=== PATIENT | male | born 1975 | race African-American/Black ===

== ENCOUNTER 2022-04-06 13:59 | Emergency (ER) | payer SELFPAY ==
[2022-04-06] MEDS ORDERED: SODIUM CHLORIDE 0.9% 1000 ML 1,000 ML IV ONE (16:05)
[2022-04-06 16:56] VITALS: BP 102/72
[2022-04-06 17:10] LABS: Hematocrit 43.7 % (35.5-45.6); Hemoglobin 15.1 gm/dl (11.8-15.2); Mean Corpuscular HGB Conc 35 % (32-34); Mean Corpuscular Volume 97 fl (84-94); Platelet Count 170 K/mm3 (140-440); Red Blood Count 4.52 M/mm3 (3.65-5.03); Red Cell Distribution Width 14.1 % (13.2-15.2)
[2022-04-06 17:24] LABS: Alanine Aminotransferase 21 units/L (7-56); Albumin 4.7 g/dL (3.9-5); BUN/Creatinine Ratio 7; Blood Urea Nitrogen 6 mg/dL (9-20); Calcium 9.2 mg/dL (8.4-10.2); Hemolysis Index 44
[2022-04-06 17:38] LABS: Amphetamine Screen,Urine Negative; Benzodiazepines Screen,Urine Negative; Cannabinoid Screen,Urine Negative; Cocaine Screen,Urine Negative; Methadone Screen,Urine Negative; Opiate Screen,Urine Negative
[2022-04-06 17:45] LABS: WBC,Urine < 1.0 /HPF (0.0-6.0)
[2022-04-06 17:59] LABS: Color,Urine Yellow (Yellow)
[2022-04-06 18:00] LABS: Bilirubin,Urine Negative (Negative); Blood,Urine Negative (Negative); Urobilinogen,Urine < 2.0 mg/dL (<2.0)
--- NOTE | 2022-04-06 19:44 | Emergency Department Report ---
ED Psych HPI - General Chief Complaint: Psych Stated Complaint: SUICIDAL Time Seen by Provider: 04/06/22 15:28 Source: EMS Mode of arrival: Stretcher - History of Present Illness MD Complaint: suicidal ideation, feels depressed Associated Psychiatric Symptoms: depression, suicidal ideation History of same: No Improves With: none Worsens With: none - Related Data Allergies Allergy/AdvReac Type Severity Reaction Status Date / Time No Known Allergies Allergy Unverified 04/06/22 16:05 ED Review of Systems ROS: Stated complaint: SUICIDAL Other details as noted in HPI Constitutional: denies: chills, fever Eyes: denies: eye pain, eye discharge, vision change ENT: denies: ear pain, throat pain Respiratory: denies: cough, shortness of breath, wheezing Cardiovascular: denies: chest pain, palpitations Endocrine: no symptoms reported Gastrointestinal: denies: abdominal pain, nausea, diarrhea Genitourinary: denies: urgency, dysuria Musculoskeletal: denies: back pain, joint swelling, arthralgia Skin: denies: rash, lesions Neurological: denies: headache, weakness, paresthesias Psychiatric: denies: anxiety, depression Hematological/Lymphatic: denies: easy bleeding, easy bruising ED Past Medical Hx - Past Medical History Previous Medical History?: No - Social History Smoking Status: Current Every Day Smoker Substance Use Type: Alcohol ED Physical Exam - General Limitations: No Limitations General appearance: alert, appears intoxicated - Head Head exam: Present: atraumatic, normocephalic - Eye Eye exam: Present: normal appearance - ENT ENT exam: Present: mucous membranes moist - Neck Neck exam: Present: normal inspection - Respiratory Respiratory exam: Present: normal lung sounds bilaterally. Absent: respiratory distress - Cardiovascular Cardiovascular Exam: Present: regular rate, normal rhythm. Absent: systolic murmur, diastolic murmur, rubs, gallop - GI/Abdominal GI/Abdominal exam: Present: soft, normal bowel sounds - Rectal Rectal exam: Present: deferred - Extremities Exam Extremities exam: Present: normal inspection - Back Exam Back exam: Present: normal inspection - Neurological Exam Neurological exam: Present: alert, oriented X3 - Psychiatric Psychiatric exam: Present: normal affect, depressed - Skin Skin exam: Present: warm, dry, intact, normal color. Absent: rash ED Course Vital Signs 06/02/22 06/02/22 06/02/22 14:14 16:50 16:56 Pulse Rate 98 H 70 Respiratory 15 18 Rate Blood Pressure 130/80 102/72 [Right] O2 Sat by Pulse 100 100 100 Oximetry ED Medical Decision Making - Lab Data Result diagrams: 04/06/22 16:06 04/06/22 16:06 Critical care attestation.: If time is entered above; I have spent that time in minutes in the direct care of this critically ill patient, excluding procedure time. ED Disposition Clinical Impression: Suicidal ideation, Depression Disposition: 30 STILL A PATIENT Is pt being admited?: No Does the pt Need Aspirin: No Condition: Stable Referrals: PRIMARY CARE, [Primary Care Provider] - 3-5 Days
[2022-04-06 20:08] LABS: Basophils % (Manual) 0 % (0.0-1.8); Platelet Estimate Consistent w Auto; RBC Morphology Normal; Total Cells Counted 100
== END 2022-04-06 17:36 | disposition left against medical advice (07) ==
LOC: ED 13:59
DX: R45.851 Suicidal ideations (principal); F32.A Depression, unspecified; F17.200 Nicotine dependence, unspecified, uncomplicated
CPT/HCPCS: 36415; 80053; 80307; 81001; 85007; 85025; 99283; J7030; 80320; G0480

== ENCOUNTER 2022-04-08 12:36 | Emergency (ER) | payer SELFPAY ==
[2022-04-08] MEDS ORDERED: DEXTROSE 10% *Hypoglycemia IV PRN (12:51)
[2022-04-08] MEDS ORDERED: HALOPERIDOL LACTATE 5 MG/1 ML INJ IM PRN (12:51)
[2022-04-08] MEDS ORDERED: LORazepam 2 MG/ML VIAL IM PRN (12:51)
--- NOTE | 2022-04-08 12:54 | Emergency Department Report ---
<MAYNOR COLON - Last Filed: 04/08/22 14:20> ED General Adult HPI - General Chief complaint: Alcohol Stated complaint: ETOH Time Seen by Provider: 04/08/22 12:43 Source: patient, EMS (Verbal report received from emergency medical services. EMS documentation not available at time of chart dictation ), RN notes reviewed Mode of arrival: Stretcher Limitations: Other (Alcohol intoxication) - History of Present Illness Initial comments: The patient was evaluated in the emergency department for symptoms described in the history of present illness. He/she was evaluated in the context of the global COVID-19 pandemic, which necessitated consideration that the patient might be at risk for infection with the virus that causes COVID-19. Institutional protocols and algorithms that pertain to the evaluation of patients at risk for COVID-19 are in a state of rapid change based on information released by regulatory bodies including the CDC and federal and state organizations. These policies and algorithms were followed during the patient's care in the emergency department. Please note that these policies, procedures and recommendations changed on a rapid basis. This patient is a 47-year-old gentleman who is not known to myself previously, who presents to the ER with EMS with an EMS articulated complaint of acute un complicated nontraumatic alcohol intoxication. EMS reports the patient is a resident at a local hot, and was reportedly not getting out of his room, secondary to presumed alcohol intoxication. Hotel then called 911, police, who for unclear and uncertain reasons, requested emergency medical services. EMS articulates that the patient is ambulatory in the field, there is no history of trauma that they are aware of, normal Accu-Chek, and that the patient endorsed no complaints. Here in the emergency room, the patient is floridly intoxicated, not able to describe the circumstances of his intoxication. He makes no complaint of physical pain, homicidality or suicidality. EMS reports that they found the patient sitting down in a chair. It is not known if the patient fell. The patient is not accompanied by friends or family at this time for collateral information or additional information. This patient is intoxicated and therefore, not able to describe the qualitative nature of symptoms, exacerbating factors relieving factors or aggravating factors -: unknown - Related Data Previous Rx's Medication Instructions Recorded Last Taken Type Multivitamin with Folic Acid [Cvs 400 mcg PO QDAY #30 tablet 04/08/22 Unknown Rx One Daily Essential Tablet] chlordiazePOXIDE [Librium] 25 mg PO Q6H PRN #25 capsule 04/08/22 Unknown Rx Allergies Allergy/AdvReac Type Severity Reaction Status Date / Time No Known Allergies Allergy Verified 04/08/22 12:38 ED Review of Systems Comment: Unobtainable due to pts medical conditions ED Past Medical Hx - Social History Smoking Status: Current Every Day Smoker Substance Use Type: Alcohol - Medications Home Medications: Home Medications Medication Instructions Recorded Confirmed Last Taken Type Multivitamin with Folic Acid [Cvs 400 mcg PO QDAY #30 tablet 04/08/22 Unknown Rx One Daily Essential Tablet] chlordiazePOXIDE [Librium] 25 mg PO Q6H PRN #25 capsule 04/08/22 Unknown Rx ED Physical Exam - General Limitations: Altered Mental Status (Alcohol intoxication) General appearance: in no apparent distress, appears intoxicated - Head Head exam: Present: atraumatic, normocephalic - Eye Eye exam: Present: normal appearance, EOMI. Absent: nystagmus - ENT ENT exam: Present: normal exam, normal orophraynx, mucous membranes moist, normal external ear exam - Neck Neck exam: Present: normal inspection, full ROM. Absent: tenderness, meningismus - Respiratory Respiratory exam: Present: normal lung sounds bilaterally. Absent: respiratory distress, wheezes, rales, rhonchi, stridor, decreased breath sounds - Cardiovascular Cardiovascular Exam: Present: regular rate, normal rhythm, normal heart sounds. Absent: bradycardia, tachycardia, irregular rhythm, systolic murmur, diastolic murmur, rubs, gallop - GI/Abdominal GI/Abdominal exam: Present: soft. Absent: distended, tenderness, guarding, rebound, rigid, pulsatile mass - Rectal Rectal exam: Present: deferred - Extremities Exam Extremities exam: Present: normal inspection, full ROM, other (2+ pulses noted in the bilateral upper and lower extremities. There is no palpable cord. negative Homans sign. Muscular compartments are soft. The pelvis is stable.). Absent: pedal edema, calf tenderness - Back Exam Back exam: Present: normal inspection. Absent: tenderness, CVA tenderness (R), CVA tenderness (L), paraspinal tenderness, vertebral tenderness - Neurological Exam Neurological exam: Present: altered, other (Moving 4 extremities. There is no facial droop. Patient is intoxicated.) - Skin Skin exam: Present: warm, dry, intact, normal color. Absent: rash ED Course - Reevaluation(s) Reevaluation #1: 04/08/22 13:07 Differential diagnosis, including but not limited to: Alcohol intoxication, electrolyte derangement, medical screening examination Assessment and plan: 47-year-old gentleman with probable simple alcohol intoxication. He is afebrile with reassuring vital signs and protecting his airway and moving 4 extremities. There is no history or physical examination evidence of blunt trauma. However, given that patient is found in a hotel, we do not know if he fell. Therefore, we will obtain CT scan of the brain and cervical spine. Patient will be placed on hold pending clinical sobriety. We will obtain appropriate laboratory studies. Holding orders initiated, as needed Accu-Cheks ordered, as needed dextrose ordered. Reassess after laboratory studies and diagnostics have resulted. At this point in time does not meet criteria for 1013. 04/08/22 14:09 Care will be transferred to the oncoming ER physician, Dr. Reynolds, To follow-up on CT scan brain and cervical spine, basic metabolic panel, and reassess and discharge when clinically sober Patient breathing comfortably at this time, and in no acute distress, protecting airway. ED Medical Decision Making - Lab Data Result diagrams: 04/08/22 12:59 04/08/22 12:59 Vital Signs 04/08/22 12:36 Temperature 98 F Pulse Rate 87 Blood Pressure 125/87 [Left] O2 Sat by Pulse 98 Oximetry Lab Results 04/08/22 04/08/22 04/08/22 Range/Units 12:59 12:59 12:59 WBC 5.8 (4.5-11.0) K/mm3 RBC 5.17 H (3.65-5.03) M/mm3 Hgb 16.6 H (11.8-15.2) gm/dl Hct 50.0 H D (35.5-45.6) % MCV 97 H (84-94) fl MCH 32 (28-32) pg MCHC 33 (32-34) % RDW 13.4 (13.2-15.2) % Plt Count 180 (140-440) K/mm3 Sodium 142 (137-145) mmol/L Potassium 3.7 (3.6-5.0) mmol/L Chloride 106.5 (98-107) mmol/L Carbon Dioxide 18 L (22-30) mmol/L Anion Gap 21 mmol/L BUN 8 L (9-20) mg/dL Creatinine 1.0 (0.8-1.3) mg/dL Estimated GFR > 60 ml/min BUN/Creatinine Ratio 8 % Glucose 221 H (75-100) mg/dL Calcium 8.5 (8.4-10.2) mg/dL Salicylates < 0.3 L (2.8-20.0) mg/dL Acetaminophen (10.0-30.0) ug/mL Plasma/Serum Alcohol (0-0.07) % 04/08/22 04/08/22 Range/Units 12:59 12:59 WBC (4.5-11.0) K/mm3 RBC (3.65-5.03) M/mm3 Hgb (11.8-15.2) gm/dl Hct (35.5-45.6) % MCV (84-94) fl MCH (28-32) pg MCHC (32-34) % RDW (13.2-15.2) % Plt Count (140-440) K/mm3 Sodium (137-145) mmol/L Potassium (3.6-5.0) mmol/L Chloride (98-107) mmol/L Carbon Dioxide (22-30) mmol/L Anion Gap mmol/L BUN (9-20) mg/dL Creatinine (0.8-1.3) mg/dL Estimated GFR ml/min BUN/Creatinine Ratio % Glucose (75-100) mg/dL Calcium (8.4-10.2) mg/dL Salicylates (2.8-20.0) mg/dL Acetaminophen 5.0 L (10.0-30.0) ug/mL Plasma/Serum Alcohol 0.47 H (0-0.07) % - Radiology Data Radiology results: pending ED Disposition Clinical Impression: Encounter for medical screening examination Alcohol intoxication Qualifiers: Complication of substance-induced condition: with unspecified complication Qualified Code(s): F10.929 - Alcohol use, unspecified with intoxication, unspecified Disposition: 07 LEFT AGAINST MEDICAL ADVICE Condition: Good Additional Instructions: Please minimize/avoid consumption of alcohol. Do not drive or operate motor vehicles until cleared to do so by your primary care doctor. Participate in physical activities as tolerated. Take the multivitamin as directed. Take the Librium as directed. Follow-up with a primary care doctor or instructional specialist within the next week. Please return to the emergency room right away with new pain, worsened pain, migration of pain, projectile vomiting, change in mental status, confusion, sydnee bility tolerate liquid feeds, new, worsened or different symptoms not present on the initial emergency room evaluation Prescriptions: Multivitamin with Folic Acid [Cvs One Daily Essential Tablet] 400 mcg PO QDAY #30 tablet chlordiazePOXIDE [Librium] 25 mg PO Q6H PRN #25 capsule PRN Reason: Alcohol Withdrawal Referrals: [facility] [Outside] - 3-5 Days [facility] [Outside] - 3-5 Days <JOHNNY REYNOLDS - Last Filed: 04/08/22 22:04> ED Review of Systems ROS: Stated complaint: ETOH Other details as noted in HPI ED Course Vital Signs 04/08/22 04/08/22 04/08/22 12:36 13:06 20:04 Temperature 98 F Pulse Rate 87 103 H Respiratory 18 Rate Blood Pressure 125/87 120/75 [Left] O2 Sat by Pulse 98 100 99 Oximetry - Reevaluation(s) Reevaluation #2: 04/08/22 16:36 CT head and Cervical noted with no acute findings Reevaluation #3: 04/08/22 17:51 I ordered Banana bag 1L and ivf ns 1L bolus to help with likely dehydration from the alcohol intoxication-- Reevaluation #4: 04/08/22 22:03 Pt refused the ivf ns and banana bag that was ordered to hydrate him. I went outside to smoke left his shoes in the examination room only to return about 10 minutes later. About 1 hour after he returned to the room patient threatened the staff and decided to signed out AMA. ED Medical Decision Making - Lab Data Result diagrams: 04/08/22 12:59 04/08/22 12:59 - Radiology Data Radiology results: report reviewed, image reviewed CT head with no acute intracranial abnormality CT cervical noted with no acute bony abnormality Critical care attestation.: If time is entered above; I have spent that time in minutes in the direct care of this critically ill patient, excluding procedure time. ED Disposition Is pt being admited?: No Does the pt Need Aspirin: No Time of Disposition: 22:04
[2022-04-08 13:25] LABS: Hemoglobin 16.6 gm/dl (11.8-15.2); Mean Corpuscular HGB Conc 33 % (32-34); Mean Corpuscular Volume 97 fl (84-94); Platelet Count 180 K/mm3 (140-440); Red Blood Count 5.17 M/mm3 (3.65-5.03); Red Cell Distribution Width 13.4 % (13.2-15.2)
[2022-04-08 14:17] LABS: BUN/Creatinine Ratio 8; Blood Urea Nitrogen 8 mg/dL (9-20); Calcium 8.5 mg/dL (8.4-10.2); Hemolysis Index 49
--- NOTE | 2022-04-08 16:19 | Cat Scan Report ---
CT head/brain wo con INDICATION: etoh intoxication shaking, unknown if trauma. TECHNIQUE: Routine CT head. All CT scans at this location are performed using CT dose reduction for A TAI by means of automated exposure control. COMPARISON: None. FINDINGS: Intracranial: Barnett-white matter differentiation is maintained. No intracranial hemorrhage. No extra a xial collection. No hydrocephalus. No herniation. Sinuses: Paranasal sinuses and mastoid air cells are essentially clear. Orbits: Globes are intact. Calvarium: No acute fracture. IMPRESSION: 1. No acute intracranial abnormality. Signer Name: Adiel Abreu MD Signed: 04/08/2022 4:14 PM Workstation Name: [id number]
--- NOTE | 2022-04-08 16:19 | Cat Scan Report ---
CT cervical spine wo con INDICATION: etoh intoxication shaking, unknown if trauma. TECHNIQUE: Axial CT images of the cervical spine were obtained. Sagittal and coronal reformatted images were pro duced. All CT scans at this location are performed using CT dose reduction for ALARA by means of auto mated exposure control. COMPARISON: None available. FINDINGS: ALIGNMENT: Normal alignment. VERTEBRAE: No fracture. Vertebral body heights are preserved. C1 and C2 are congruent. SPONDYLOSIS: No significant spondylosis. SOFT TISSUES: No significant soft tissue abnormality. ADDITIONAL FINDINGS: No significant additional findings. IMPRESSION: 1. No fracture of the cervical spine. Signer Name: Adiel Abreu MD Signed: 04/08/2022 4:15 PM Workstation Name: [id number]
[2022-04-08] MEDS ORDERED: SODIUM CHLORIDE 0.9% 1000 ML 1,000 ML IV ONE (17:49)
[2022-04-08] MEDS ORDERED: THIAMINE 100 MG, FOLIC ACID 1 MG, MULTIPLE VITAMIN INJ, ADULT 10 ML in SODIUM CHLORIDE ... IV ONE (17:50)
[2022-04-08 20:04] VITALS: BP 120/75
== END 2022-04-08 20:40 | disposition left against medical advice (07) ==
LOC: ED 12:36
DX: F10.129 Alcohol abuse with intoxication, unspecified (principal); Z13.30 Encounter for screening examination for mental health and behavioral disorders, unspecified; F17.290 Nicotine dependence, other tobacco product, uncomplicated; R51.9 Headache, unspecified
CPT/HCPCS: 36415; 70450; 72125; 80048; 82962; 85027; 96361; 96365; 96366; 96372; 99284; J2060; J3411; J3490; J7030; 80320; G0480

== ENCOUNTER 2022-04-09 00:01 | Emergency (ER) | payer SELFPAY ==
[2022-04-09 00:51] LABS: Basophils % (Auto) 0.3 % (0.0-1.8); Eosinophils # (Auto) 0.1 K/mm3 (0.0-0.4); Eosinophils % (Auto) 0.6 % (0.0-4.3); Hematocrit 48.9 % (35.5-45.6); Hemoglobin 16.4 gm/dl (11.8-15.2); Lymphocytes # (Auto) 2.2 K/mm3 (1.2-5.4); Lymphocytes % (Auto) 23.7 % (13.4-35.0); Mean Corpuscular HGB Conc 34 % (32-34); Mean Corpuscular Volume 97 fl (84-94); Monocytes # (Auto) 0.3 K/mm3 (0.0-0.8); Monocytes % (Auto) 3.4 % (0.0-7.3); Platelet Count 198 K/mm3 (140-440); Red Blood Count 5.05 M/mm3 (3.65-5.03); Red Cell Distribution Width 13.7 % (13.2-15.2)
[2022-04-09 01:33] LABS: BUN/Creatinine Ratio 11; Blood Urea Nitrogen 10 mg/dL (9-20); Calcium 9.4 mg/dL (8.4-10.2); Hemolysis Index 16
[2022-04-09] MEDS ORDERED: MULTIVITAMINS ,THERAPEUTIC TAB PO ONE (02:04)
[2022-04-09] MEDS ORDERED: THIAMINE 100 MG TAB PO ONE (02:04)
[2022-04-09] MEDS ORDERED: FOLIC ACID 1 MG TAB PO ONE (02:05)
--- NOTE | 2022-04-09 02:09 | Emergency Department Report ---
HPI - HPI HPI: Room 12 The patient is a 46-year-old male presenting with a chief complaint of suicidal ideation. Patient states he had a lot things going on And was reportedly kicked out of a detox program. Patient stated in triage that he wanted to kill himself. Patient admitted that his plan was to take pills. Patient denies any attempts at harming himself <MILLY MARINA - Last Filed: 04/09/22 02:06> <JJ BLAIR - Last Filed: 04/09/22 11:23> - General Chief Complaint: Psych Time Seen by Provider: 04/09/22 01:52 ED Past Medical Hx - Family History Family history: no significant - Social History Smoking Status: Current Every Day Smoker Substance Use Type: Alcohol <MILLY MARINA - Last Filed: 04/09/22 02:06> <JJ BLAIR - Last Filed: 04/09/22 11:23> - Medications Home Medications: Home Medications Medication Instructions Recorded Confirmed Last Taken Type Multivitamin with Folic Acid [Cvs 400 mcg PO QDAY #30 tablet 04/08/22 Unknown Rx One Daily Essential Tablet] chlordiazePOXIDE [Librium] 25 mg PO Q6H PRN #25 capsule 04/08/22 Unknown Rx ED Review of Systems ROS: Stated complaint: PSYCH EVAL Other details as noted in HPI Constitutional: no symptoms reported Eyes: denies: eye pain ENT: denies: throat pain Respiratory: no symptoms reported Cardiovascular: denies: chest pain Endocrine: no symptoms reported Gastrointestinal: denies: abdominal pain Genitourinary: denies: dysuria Musculoskeletal: denies: back pain Psychiatric: suicidal thoughts <MILLY MARINA - Last Filed: 04/09/22 02:06> ROS: Stated complaint: PSYCH EVAL Other details as noted in HPI <JJ BLAIR - Last Filed: 04/09/22 11:23> Physical Exam - Physical Exam Vital Signs: Vital Signs 04/09/22 04/09/22 00:06 02:05 Temperature 97.6 F Pulse Rate 98 H Respiratory 18 Rate Blood Pressure 124/91 O2 Sat by Pulse 97 98 Oximetry Physical Exam: GENERAL: The patient is well-developed well-nourished male sleeping on chair not appearing to be in acute distress. Patient was initially difficult to arouse but after tactile stimuli the patient awakens and answers questions HEENT: Normocephalic. Atraumatic. Extraocular motions are intact. Patient has moist mucous membranes. NECK: Supple. Trachea midline CHEST/LUNGS: Clear to auscultation. There is no respiratory distress noted. HEART/CARDIOVASCULAR: Regular. There is no tachycardia. There is no gallop rub or murmur. ABDOMEN: Abdomen is soft, nontender. Patient has normal bowel sounds. There is no abdominal distention. SKIN: There is no rash. There is no edema. There is no diaphoresis. NEURO: Patient was initially difficult to arouse but after tactile stimuli the patient awakens and answers questions. The patient is cooperative. The patient has normal speech MUSCULOSKELETAL: There is no evidence of acute injury. <MILLY MARINA - Last Filed: 04/09/22 02:06> - Physical Exam Vital Signs: Vital Signs 04/09/22 04/09/22 04/09/22 00:06 02:05 02:10 Temperature 97.6 F 98.5 F Pulse Rate 98 H 95 H Respiratory 18 16 Rate Blood Pressure 124/91 Blood Pressure 101/64 [Left] O2 Sat by Pulse 97 98 98 Oximetry <JJ BLAIR - Last Filed: 04/09/22 11:23> ED Course Vital Signs 04/09/22 04/09/22 00:06 02:05 Temperature 97.6 F Pulse Rate 98 H Respiratory 18 Rate Blood Pressure 124/91 O2 Sat by Pulse 97 98 Oximetry <MILLY MARINA - Last Filed: 04/09/22 02:06> Vital Signs 04/09/22 04/09/22 04/09/22 00:06 02:05 02:10 Temperature 97.6 F 98.5 F Pulse Rate 98 H 95 H Respiratory 18 16 Rate Blood Pressure 124/91 Blood Pressure 101/64 [Left] O2 Sat by Pulse 97 98 98 Oximetry <JJ BLAIR - Last Filed: 04/09/22 11:23> ED Medical Decision Making - Lab Data Result diagrams: 04/09/22 00:20 04/09/22 00:20 - Differential Diagnosis Suicidal ideation, alcohol intoxication <MILLY MARINA Last Filed: 04/09/22 02:06> - Lab Data Result diagrams: 04/09/22 00:20 04/09/22 00:20 <JJ BLAIR - Last Filed: 04/09/22 11:23> Critical care attestation.: If time is entered above; I have spent that time in minutes in the direct care of this critically ill patient, excluding procedure time. <MILLY MARINA - Last Filed: 04/09/22 02:06> Critical care attestation.: If time is entered above; I have spent that time in minutes in the direct care of this critically ill patient, excluding procedure time. <JJ BLAIR - Last Filed: 04/09/22 11:23> ED Disposition <MILLY MARINA - Last Filed: 04/09/22 02:06> Is pt being admited?: No <JJ BLAIR - Last Filed: 04/09/22 11:23> Clinical Impression: Alcohol intoxication Qualifiers: Complication of substance-induced condition: with unspecified complication Qualified Code(s): F10.929 - Alcohol use, unspecified with intoxication, unspecified Disposition: 01 HOME / SELF CARE / HOMELESS Condition: Stable Instructions: Binge-Drinking Information, Adult Additional Instructions: Patient is medically cleared to be admitted to alcohol rehab. Referrals: FRANCY PARDO MD [Primary Care Provider] - 3-5 Days
[2022-04-09 07:30] LABS: Amphetamine Screen,Urine PRESUMPTIVE NEGATIVE; Benzodiazepines Screen,Urine PRESUMPTIVE NEGATIVE; Cannabinoid Screen,Urine PRESUMPTIVE NEGATIVE; Cocaine Screen,Urine PRESUMPTIVE NEGATIVE; Methadone Screen,Urine PRESUMPTIVE NEGATIVE; Opiate Screen,Urine PRESUMPTIVE NEGATIVE
[2022-04-09 08:05] LABS: Color,Urine Straw (Yellow)
[2022-04-09 08:06] LABS: Bilirubin,Urine Negative (Negative); Blood,Urine Negative (Negative); Protein,Urine <15 mg/dL mg/dL (Negative)
[2022-04-09 08:07] LABS: Bacteria,Urine 1+ /HPF (Negative); Urobilinogen,Urine < 2.0 mg/dL (<2.0)
--- NOTE | 2022-04-09 10:01 | Consultation ---
History of Present Illness - Reason for Consult Consult date: 04/09/22 Reason for consult: Suicidal - Chief Complaint Chief complaint: I have alcohol problems - History of Present Psychiatric Illness The patient is a 47yo male with history of Alcohol use disorder. He is currently at a Sober living accommodation where he hopes to go back to today. He states that his problem is related to his alcohol habits and is motivated to want to stop for good. He feels better this morning and is not suicidal. Patient describes a good and stable mood, denies being depressed or excessively nervous. Patient eats and sleeps well. Patient denies panic attacks, recurrent nightmares or flashbacks. Patient denies symptoms suggestive of OCD or PTSD. Patient denies hallucinations, paranoia, thought interference and no features suggestive of hypomania or nisreen. He completely denies suicidal or homicidal thoughts. RECOMMENDATIONS: DISPOSITION: Per primary team, no indication for acute inpatient psychiatric hospitalization at this time LEGAL STATUS: Voluntary FOLLOW-UP: Will sign off Please contact with any questions and/or concerns. Medications and Allergies Allergies Allergy/AdvReac Type Severity Reaction Status Date / Time No Known Allergies Allergy Verified 04/08/22 12:38 Home Medications Medication Instructions Recorded Confirmed Last Taken Type Multivitamin with Folic Acid [Cvs 400 mcg PO QDAY #30 tablet 04/08/22 Unknown Rx One Daily Essential Tablet] chlordiazePOXIDE [Librium] 25 mg PO Q6H PRN #25 capsule 04/08/22 Unknown Rx Mental Status Exam - Vital signs Last Vital Signs Temp 98.5 F 04/09/22 02:10 Pulse 95 H 04/09/22 02:10 Resp 16 04/09/22 02:10 BP 101/64 04/09/22 02:10 Pulse Ox 98 04/09/22 02:10 - Exam Orientation: time, place, person Affect: normal Mood: appropriate Thought Process: Intact Perceptions: none Speech: normal rate and pattern Concentration: focused Motor activity: normal Level of consciousness: alert Memory: Intact Sleep Symptoms: None Interaction: cooperative Mini mental status exam(if necessary): 24-30 Results Result Diagrams: 04/09/22 00:20 04/09/22 00:20 Abnormal lab results 04/09/22 04/09/22 04/09/22 Range/Units 00:20 00:20 00:20 RBC (3.65-5.03) M/mm3 Hgb (11.8-15.2) gm/dl Hct (35.5-45.6) % MCV (84-94) fl Seg Neutrophils % (40.0-70.0) % Glucose 296 H (75-100) mg/dL Salicylates < 0.3 L (2.8-20.0) mg/dL Acetaminophen 5.0 L (10.0-30.0) ug/mL Plasma/Serum Alcohol (0-0.07) % 04/09/22 04/09/22 Range/Units 00:20 00:20 RBC 5.05 H (3.65-5.03) M/mm3 Hgb 16.4 H (11.8-15.2) gm/dl Hct 48.9 H (35.5-45.6) % MCV 97 H (84-94) fl Seg Neutrophils % 72.0 H (40.0-70.0) % Glucose (75-100) mg/dL Salicylates (2.8-20.0) mg/dL Acetaminophen (10.0-30.0) ug/mL Plasma/Serum Alcohol 0.27 H (0-0.07) % All other labs normal. Assessment and Plan - Psychiatric problem (1) Alcohol intoxication Current Visit: No Status: Acute Qualifiers: Complication of substance-induced condition: with unspecified complication Qualified Code(s): F10.929 - Alcohol use, unspecified with intoxication, unspecified
--- NOTE | 2022-04-09 11:23 | Event Note ---
Date: 04/09/22 Patient is 47 years old male admitted to the emergency room with alcohol intoxication. Patient is sober today, patient is alert oriented x3 in no acute distress. 's vital signs stable. Patient is medically and psychiatrically stable for discharge to go to finish his alcohol rehab.
[2022-04-09 12:59] VITALS: BP 143/91
== END 2022-04-09 13:24 | disposition home or self-care (01) ==
LOC: ED 00:01
DX: F10.129 Alcohol abuse with intoxication, unspecified (principal); Z20.822 Contact with and (suspected) exposure to COVID-19
CPT/HCPCS: 36415; 80048; 80307; 81001; 85025; 99284; U0003; 80320; G0480

== ENCOUNTER 2022-05-27 17:01 | Emergency (ER) | payer SELFPAY ==
--- NOTE | 2022-05-27 17:27 | Emergency Department Report ---
HPI - General Chief Complaint: Overdose PUI?: No Time Seen by Provider: 05/27/22 17:20 - HPI HPI: Patient is a 47-year-old male with a history of chronic alcohol abuse, brought in by EMS for intentional drug overdose and suicidal ideation. EMS reports the patient took 1500 mg of trazodone as well as drink a liter of vodka. Time of consumption of these are unknown. Patient also subscribes to snorting cocaine. Patient states "I just wanted to kill myself. I am sick of living like this." He denies ingesting any other substances. He denies any falls or head trauma chest pain shortness of breath difficulty breathing or abdominal pain. Patient reports he is hungry. Pain 0 out of 10. ED Past Medical Hx - Past Medical History Previous Medical History?: No Hx Diabetes: Yes - Family History Family history: no significant - Social History Smoking Status: Never Smoker Substance Use Type: Alcohol, Cocaine, Prescribed - Medications Home Medications: Home Medications Medication Instructions Recorded Confirmed Last Taken Type Multivitamin with Folic Acid [[facility] 400 mcg PO QDAY #30 tablet 04/08/22 Unknown Rx One Daily Essential Tablet] chlordiazePOXIDE [Librium] 25 mg PO Q6H PRN #25 capsule 04/08/22 Unknown Rx ED Review of Systems ROS: Stated complaint: SI Other details as noted in HPI Comment: All other systems reviewed and negative Constitutional: no symptoms reported. denies: malaise Eyes: denies: eye pain, vision change ENT: denies: ear pain, throat pain, dental pain, hearing loss, epistaxis Respiratory: no symptoms reported, see HPI Cardiovascular: denies: chest pain, palpitations, dyspnea on exertion, orthopnea, edema, syncope, paroxysmal nocturnal dyspnea, other Endocrine: no symptoms reported Gastrointestinal: denies: abdominal pain, nausea, vomiting, diarrhea, constipation, hematemesis, melena Genitourinary: denies: as per HPI, urgency, dysuria, frequency, hematuria, discharge, testicular pain, testicular mass, other Musculoskeletal: denies: back pain, joint swelling, arthralgia, myalgia Skin: denies: rash, lesions, change in color, change in hair/nails, pruritus Neurological: denies: headache, weakness, numbness, paresthesias, confusion, abnormal gait Psychiatric: anxiety, depression, suicidal thoughts Hematological/Lymphatic: denies: easy bleeding, easy bruising, swollen glands Physical Exam - Physical Exam Vital Signs: Vital Signs 05/27/22 05/27/22 17:09 17:13 Temperature 98.7 F 98.9 F Pulse Rate 102 H 75 Respiratory 16 18 Rate Blood Pressure 109/71 Blood Pressure 116/72 [Left] O2 Sat by Pulse 96 99 Oximetry General: Gen: pt is well appearing, no acute distress, strong smell of ethanol on breath, asleep but easily arousable, no acute distress HEENT: Normocephalic atraumatic pupils equally round and reactive to light extraocular muscles intact sclera anicteric Neck: Full range of motion, no midline spinal tenderness palpation, no JVD, no carotid bruits, no nuchal rigidity CVS: S1-S2 regular rate and rhythm with no gallops rubs or murmurs, chest wall nontender Pulmonary: Clear to auscultation bilaterally, no wheezes rales or rhonchi Abdomen: Soft nondistended nontender no guarding or rebound tenderness, no palpable deformities or step-offs, normal active bowel sounds, no hepatosplenomegaly, no pulsatile masses Back: Full range of motion, no midline spinal tenderness palpation, no palpable deformities or step-offs : Deferred Extremities: No cyanosis no clubbing no edema, intact distal peripheral pulses, Integumentary: Skin normal, no petechia no purpura no abscess no lacerations no evidence of trauma no evidence of infection Neuro: Patient is asleep but easily arousable, and upon being aroused he is awake alert and oriented to person place time situation, mentating well, cranial nerves II through XII intact, no focal neurodeficits, sensation grossly tact Psych: Calm cooperative, mood affect normal ED Course Vital Signs 05/27/22 05/27/22 17:09 17:13 Temperature 98.7 F 98.9 F Pulse Rate 102 H 75 Respiratory 16 18 Rate Blood Pressure 109/71 Blood Pressure 116/72 [Left] O2 Sat by Pulse 96 99 Oximetry - Reevaluation(s) Reevaluation #2: 05/27/22 23:23 pt is well appearing; observed ambulating in his exam room; reports ED Medical Decision Making - Lab Data Result diagrams: 05/27/22 17:48 05/27/22 17:48 - EKG Data -: EKG Interpreted by Me EKG shows normal: sinus rhythm Rate: normal - EKG Data When compared to previous EKG there are: no significant change Interpretation: no acute changes 05/27/22 17:26 EKG interpreted by me: Ventricular rate 78 bpm. P waves are present in procedure QRS complex. Intervals normal. No ST segment depressions or elevations. No T wave flattening or inversions. No ectopy. No arrhythmia. Normal axis. Sinus rhythm. - Radiology Data Radiology results: report reviewed - Medical Decision Making 47-year-old male with a history of polysubstance abuse including alcohol and cocaine presents for evaluation of what he states was intentional suicidal attempt in the setting of overdosing on trazodone alcohol and consuming cocaine. Vital stable. Labs reviewed. Patient given potassium chloride. Alcohol level elevated. Poison control contacted by emergency department nurse. Patient observed for 6 hours in the main emergency department and his mentation significantly improved. He has no manifestation of arrhythmia dysrhythmia MEDICAL SPECIALIST depression or any other evidence of decompensation in the setting of his intentional overdose. He was observed multiple times ambulating here in the emergency department and was comfortable and well-appearing. Patient deemed medically cleared for evaluation by psychiatry. 1013 placed. Mental health consult placed as well. Patient will be transferred to psychiatric holding area for evaluation by mental health in the morning. Patient has been ordered for repeat potassium as well as serum alcohol level at 8 AM tomorrow morning Critical Care Time: No Critical care attestation.: If time is entered above; I have spent that time in minutes in the direct care of this critically ill patient, excluding procedure time. ED Disposition Clinical Impression: Suicide attempt, Drug overdose, Polysubstance abuse Disposition: 30 STILL A PATIENT Is pt being admited?: No Does the pt Need Aspirin: No Condition: Stable Referrals: FRANCY PARDO MD [Primary Care Provider] - 3-5 Days
[2022-05-27 17:41] LABS: Bilirubin,Urine NEG (Negative); Blood,Urine NEG (Negative); Color,Urine Yellow (Yellow)
[2022-05-27 17:44] LABS: Mucus,Urine 3+ /HPF
[2022-05-27 17:50] LABS: Amphetamine Screen,Urine Negative; Benzodiazepines Screen,Urine Negative; Cannabinoid Screen,Urine Negative; Methadone Screen,Urine Negative; Opiate Screen,Urine Negative
[2022-05-27 18:06] LABS: Basophils % (Auto) 0.3 % (0.0-1.8); Eosinophils % (Auto) 0.7 % (0.0-4.3); Hematocrit 46.6 % (35.5-45.6); Hemoglobin 16.1 gm/dl (11.8-15.2); Lymphocytes # (Auto) 1.8 K/mm3 (1.2-5.4); Lymphocytes % (Auto) 42.1 % (13.4-35.0); Mean Corpuscular HGB Conc 35 % (32-34); Mean Corpuscular Volume 97 fl (84-94); Monocytes # (Auto) 0.2 K/mm3 (0.0-0.8); Monocytes % (Auto) 4.2 % (0.0-7.3); Platelet Count 121 K/mm3 (140-440); Red Blood Count 4.79 M/mm3 (3.65-5.03); Red Cell Distribution Width 14.4 % (13.2-15.2)
--- NOTE | 2022-05-27 18:07 | XRay Report ---
CHEST 1 VIEW INDICATION / CLINICAL INFORMATION: weakness, alcohol intoxication. COMPARISON: None available. FINDINGS: SUPPORT DEVICES: None. HEART / MEDIASTINUM: No significant abnormality. LUNGS / PLEURA: No significant pulmonary or pleural abnormality. No pneumothorax. ADDITIONAL FINDINGS: No significant additional findings. IMPRESSION: 1. No acute findings. Signer Name: Max Tang MD Signed: 05/27/2022 6:03 PM Workstation Name: [id number]
[2022-05-27 18:23] LABS: Cocaine Screen,Urine Positive
[2022-05-27 18:27] LABS: Alanine Aminotransferase 30 units/L (7-56); Albumin 4.3 g/dL (3.9-5); Blood Urea Nitrogen 10 mg/dL (9-20); Calcium 8.8 mg/dL (8.4-10.2); Hemolysis Index 4
[2022-05-27 18:31] LABS: BUN/Creatinine Ratio 14
[2022-05-27] MEDS ORDERED: SODIUM CHLORIDE 0.9% 1000 ML 1,000 ML IV ONE (18:49)
[2022-05-27] MEDS ORDERED: POTASSIUM CHLORIDE ER 20 MEQ TAB PO ONE (18:49)
[2022-05-27] MEDS ORDERED: LORazepam 2 MG/ML VIAL IV ONE (22:20)
[2022-05-28 07:53] LABS: BUN/Creatinine Ratio 14
[2022-05-28 09:05] LABS: Blood Urea Nitrogen 20 mg/dL (9-20); Calcium 9.2 mg/dL (8.4-10.2); Hemolysis Index 6
--- NOTE | 2022-05-28 12:26 | Event Note ---
Date: 05/28/22 S: No events reported overnight O: Vital Signs - 8 hr 05/28/22 10:05 Temperature 98.9 F Pulse Rate 88 Respiratory 18 Rate Blood Pressure 112/76 [Left] O2 Sat by Pulse 99 Oximetry A: Suicidal ideation/overdose P: Awaiting psych eval
--- NOTE | 2022-05-28 16:28 | Consultation ---
History of Present Illness - Reason for Consult Consult date: 05/27/22 Reason for consult: MHE - History of Present Psychiatric Illness Psychiatric Consult Note Patient Name: EH JOHN Date of : 79 Patient Status: Emergency Emergency Provider: MILLY MARINA Date: 05/28/22 15:22 Initialization Date: 05/28/22 15:22 History of Present Illness - Reason for Consult Consult date: 05/27/22 Reason for consult: MHE - Chief Complaint Chief complaint: - Reason for Consult Consult date: 05/28/22 Reason for consult: Alcohol intoxication - Chief complaint: "I over drank" - History of Present Psychiatric Illness 47 year old male states [facility] he ws brought to the ER because " I drank too much" Patient has a hx of ETOH and has been in the hospital several times in the past 2 months. Patient sates that he has been drinking because of "bad things happening in my life" Patient has tried different alcohol detox program, but denies having seen a therapist. Patient might benefit more from outpatient therapy sessions at this time.Patient eats and sleeps well. Patient denies panic attacks, recurrent nightmares or flashbacks. Patient denies symptoms suggestive of OCD or PTSD. Patient denies hallucinations, paranoia, thought interference and no features suggestive of hypomania or nisreen. He completely denies suicidal or homicidal thoughts. Will recommend outpatient treatment and therapy sessions. PAST PSYCHIATRIC HISTORY: Diagnoses: Alcohol use, unspecified with intoxication, unspecified Suicide attempts or Self-harm behavior: Yes Prior psychiatric hospitalizations: Yes Substance Abuse history: Yes Previous psychiatric medications tried: Trazadone Outpatient treatment: Yes PAST MEDICAL HISTORY: Family Psychiatric History None reported or documented SOCIAL HISTORY Marital Status: Living Arrangements: Alone Employment Status: Employed Access to guns/weapons: Denies Education: College History of Abuse: Denies Legal History: REVIEW OF SYSTEMS Constitutional: Negative for weight loss ENT: Negative for stridor Respiratory: Negative for cough or hemoptysis All other systems reviewed and are negative MENTAL STATUS General Appearance and Behavior: age appropriate, good eye contact, cooperative with questioning and polite Cooperation: Cooperative Psychomotor Behavior: within normal limits Mood: OK Affect and affective range: Congruent with stated mood Thought Process: Fluent/Logical and Goal-directed Thought Content: Within reality Speech: Normal volume and Regular rate and rhythm Intellectual Functioning Average Suicidal Ideation: Denies SI Homicidal Ideation: Denies HI Impulse Control: intact Insight and Judgment: normal insight and judgment Memory: Normal Attention: Normal Orientation: alert and oriented RECOMMENDATIONS PSYCHOTHERAPY: Supportive psychotherapy needed MEDICAL: Per primary team DELIRIUM PRECAUTIONS: Please re-orient patient frequently, keep lights on during the day, and minimize benzodiazepines and opiates as these medications could worsen patient's confusion. HVAC/R INSTRUCTOR: /Defer to primary team DISPOSITION: Per primary team, no indication for acute inpatient psychiatric hospitalization at this time LEGAL STATUS: DC 1013 FOLLOW-UP: Will sign off The patient agreed on the treatment plan, understood the risk, benefit, alternative treatment, potential consequence of no treatment, and gave informed consent. I have reviewed this treatment plan, including potential risks and benefits of medications, with the patient and/or family members and relevant hospital providers. Please contact with any questions and/or concerns. Medications and Allergies Allergies Allergy/AdvReac Type Severity Reaction Status Date / Time No Known Allergies Allergy Verified 05/27/22 17:14 Home Medications Medication Instructions Recorded Confirmed Last Taken Type Multivitamin with Folic Acid [[facility] 400 mcg PO QDAY #30 tablet 04/08/22 Unknown Rx One Daily Essential Tablet] chlordiazePOXIDE [Librium] 25 mg PO Q6H PRN #25 capsule 04/08/22 Unknown Rx Mental Status Exam - Vital signs Last Vital Signs Temp 98.9 F 05/28/22 10:05 Pulse 88 05/28/22 10:05 Resp 18 05/28/22 10:05 BP 112/76 05/28/22 10:05 Pulse Ox 99 05/28/22 15:23 Results Result Diagrams: 05/27/22 17:48 05/28/22 07:20 Abnormal lab results 05/27/22 05/27/22 05/27/22 Range/Units 17:48 17:48 17:48 WBC 4.4 L (4.5-11.0) K/mm3 Hgb 16.1 H (11.8-15.2) gm/dl Hct 46.6 H (35.5-45.6) % MCV 97 H (84-94) fl MCH 34 H (28-32) pg MCHC 35 H (32-34) % Plt Count 121 L (140-440) K/mm3 Lymph % (Auto) 42.1 H (13.4-35.0) % Sodium 146 H (137-145) mmol/L Potassium 3.3 L (3.6-5.0) mmol/L Chloride 107.4 H (98-107) mmol/L Creatinine 0.7 L (0.8-1.3) mg/dL Glucose 104 H (75-100) mg/dL Salicylates < 0.3 L (2.8-20.0) mg/dL Acetaminophen (10.0-30.0) ug/mL Plasma/Serum Alcohol (0-0.07) % 05/27/22 05/27/22 05/28/22 Range/Units 17:48 17:48 07:20 WBC (4.5-11.0) K/mm3 Hgb (11.8-15.2) gm/dl Hct (35.5-45.6) % MCV (84-94) fl MCH (28-32) pg MCHC (32-34) % Plt Count (140-440) K/mm3 Lymph % (Auto) (13.4-35.0) % Sodium (137-145) mmol/L Potassium 3.1 L (3.6-5.0) mmol/L Chloride (98-107) mmol/L Creatinine 5.0 H D (0.8-1.3) mg/dL Glucose (75-100) mg/dL Salicylates (2.8-20.0) mg/dL Acetaminophen 5.0 L (10.0-30.0) ug/mL Plasma/Serum Alcohol 0.29 H (0-0.07) % All other labs normal.
[2022-05-28 17:45] VITALS: BP 143/96
--- NOTE | 2022-05-29 10:01 | Electrocardiograph Report ---
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
== END 2022-05-28 17:47 | disposition home or self-care (01) ==
LOC: ED 17:01
DX: T50.901A Poisoning by unspecified drugs, medicaments and biological substances, accidental (unintentional), initial encounter (principal); R45.851 Suicidal ideations; F19.10 Other psychoactive substance abuse, uncomplicated; E11.9 Type 2 diabetes mellitus without complications; Z20.822 Contact with and (suspected) exposure to COVID-19; Y92.89 Other specified places as the place of occurrence of the external cause
CPT/HCPCS: 36415; 71045; 80048; 80053; 80307; 81001; 83735; 85025; 93005; 96361; 96374; 99285; J2060; J7030; U0003; 80320; G0480

== ENCOUNTER 2022-06-13 21:56 | Emergency (ER) | payer SELFPAY ==
[2022-06-14 00:52] VITALS: BP 157/87
--- NOTE | 2022-06-14 03:56 | Emergency Department Report ---
HPI - General Chief Complaint: Alcohol Time Seen by Provider: 06/14/22 03:30 - HPI HPI: Room 30 Patient is a 47-year-old male presenting with chief complaint of alcoholism. Patient states he came to the emergency department seeking detox from alcohol. Patient has a history of alcoholism and states he normally consumes 1.75 L of liquor daily and last consumed tonight. Patient states he was recently released from alcohol detox ED Past Medical Hx - Past Medical History Hx Diabetes: Yes - Surgical History Additional Surgical History: Herniorrhaphy - Family History Family history: no significant - Social History Smoking Status: Current Every Day Smoker (1 pack/day) Substance Use Type: None (Denies illicit drug use), Alcohol - Medications Home Medications: Home Medications Medication Instructions Recorded Confirmed Last Taken Type Multivitamin with Folic Acid [[facility] 400 mcg PO QDAY #30 tablet 04/08/22 Unknown Rx One Daily Essential Tablet] chlordiazePOXIDE [Librium] 25 mg PO Q6H PRN #25 capsule 04/08/22 Unknown Rx ED Review of Systems ROS: Stated complaint: ETOH Other details as noted in HPI Constitutional: no symptoms reported Eyes: denies: eye pain ENT: denies: throat pain Respiratory: no symptoms reported Cardiovascular: denies: chest pain Endocrine: no symptoms reported Gastrointestinal: denies: abdominal pain Genitourinary: denies: dysuria Musculoskeletal: denies: back pain Neurological: denies: headache Physical Exam - Physical Exam Vital Signs: Vital Signs 06/13/22 22:00 Temperature 98.1 F Pulse Rate 87 Respiratory 16 Rate Blood Pressure 157/87 [Right] O2 Sat by Pulse 97 Oximetry Physical Exam: GENERAL: The patient is well-developed well-nourished male lying on stretcher not appearing to be in acute distress. [] HEENT: Normocephalic. Atraumatic. Extraocular motions are intact. Patient has moist mucous membranes. NECK: Supple. Trachea midline CHEST/LUNGS: Clear to auscultation. There is no respiratory distress noted. HEART/CARDIOVASCULAR: Regular. There is no tachycardia. There is no gallop rub or murmur. ABDOMEN: Abdomen is soft, nontender. Patient has normal bowel sounds. There is no abdominal distention. SKIN: There is no rash. There is no edema. There is no diaphoresis. NEURO: The patient is initially asleep but awakens to verbal stimuli to become, alert, and oriented. The patient is cooperative. The patient has no focal neurologic deficits. The patient has normal speech. GCS 15 MUSCULOSKELETAL: There is no evidence of acute injury. ED Course Vital Signs 06/13/22 22:00 Temperature 98.1 F Pulse Rate 87 Respiratory 16 Rate Blood Pressure 157/87 [Right] O2 Sat by Pulse 97 Oximetry ED Medical Decision Making - Lab Data Result diagrams: 06/14/22 04:12 06/14/22 04:12 Laboratory Tests 06/14/22 06/14/22 06/14/22 04:12 04:12 04:12 WBC 7.5 RBC 4.80 Hgb 15.3 H Hct 46.2 H MCV 96 H MCH 32 MCHC 33 RDW 14.5 Plt Count 279 Lymph % (Auto) 33.8 [place] % (Auto) 10.2 H Eos % (Auto) 0.6 Baso % (Auto) 0.4 Lymph # (Auto) 2.6 [place] # (Auto) 0.8 Eos # (Auto) 0.0 Baso # (Auto) 0.0 Add Manual Diff Complete Total Counted Cancelled Seg Neutrophils % 55.0 Seg Neuts % (Manual) Cancelled Band Neutrophils % Cancelled Lymphocytes % (Manual) Cancelled Reactive Lymphs % (Man) Cancelled Monocytes % (Manual) Cancelled Eosinophils % (Manual) Cancelled Basophils % (Manual) Cancelled Metamyelocytes % Cancelled Myelocytes % Cancelled Promyelocytes % Cancelled Blast Cells % Cancelled Nucleated RBC % Cancelled Seg Neutrophils # 4.3 Seg Neutrophils # Man Cancelled Band Neutrophils # Cancelled Lymphocytes # (Manual) Cancelled Abs React Lymphs (Man) Cancelled Monocytes # (Manual) Cancelled Eosinophils # (Manual) Cancelled Basophils # (Manual) Cancelled Metamyelocytes # Cancelled Myelocytes # Cancelled Promyelocytes # Cancelled Blast Cells # Cancelled WBC Morphology Cancelled Hypersegmented Neuts Cancelled Hyposegmented Neuts Cancelled Hypogranular Neuts Cancelled Hypersegmented Polys Cancelled Smudge Cells Cancelled Toxic Granulation Cancelled Toxic Vacuolation Cancelled Dohle Bodies Cancelled Pelger-Huet Anomaly Cancelled Cathryn Rods Cancelled Platelet Estimate Cancelled Clumped Platelets Cancelled Plt Clumps, EDTA Cancelled Large Platelets Cancelled Giant Platelets Cancelled Platelet Satelliting Cancelled Plt Morphology Comment Cancelled RBC Morphology Cancelled Dimorphic RBCs Cancelled Polychromasia Cancelled Hypochromasia Cancelled Poikilocytosis Cancelled Basophilic Stippling Cancelled Anisocytosis Cancelled Microcytosis Cancelled Macrocytosis Cancelled Spherocytes Cancelled Pappenheimer Bodies Cancelled Sickle Cells Cancelled Target Cells Cancelled Tear Drop Cells Cancelled Ovalocytes Cancelled Stomatocytes Cancelled Helmet Cells Cancelled [place] Bodies Cancelled [place] Rings Cancelled Flakito Cells Cancelled Bite Cells Cancelled Crenated Cell Cancelled Elliptocytes Cancelled Acanthocytes (Spur) Cancelled Rouleaux Cancelled Hemoglobin C Crystals Cancelled Schistocytes Cancelled Malaria parasites Cancelled Derek Bodies Cancelled Hem Pathologist Commnt Cancelled Sodium 143 Potassium 4.1 Chloride 102.2 Carbon Dioxide 24 Anion Gap 21 BUN 9 Creatinine 0.8 Estimated GFR > 60 BUN/Creatinine Ratio 11 Glucose 132 H Calcium 8.9 Total Bilirubin 0.30 AST 24 ALT 28 Alkaline Phosphatase 94 Total Protein 6.8 Albumin 4.4 Albumin/Globulin Ratio 1.8 Urine RBC (Auto) U Epithel Cells (Auto) Salicylates < 0.3 L Urine Opiates Screen Urine Methadone Screen Acetaminophen Ur Barbiturates Screen Ur Phencyclidine Scrn Ur Amphetamines Screen Urine Cocaine Screen U Marijuana (THC) Screen Plasma/Serum Alcohol 06/14/22 06/14/22 06/14/22 04:12 04:12 Unknown WBC RBC Hgb Hct MCV MCH MCHC RDW Plt Count Lymph % (Auto) [place] % (Auto) Eos % (Auto) Baso % (Auto) Lymph # (Auto) [place] # (Auto) Eos # (Auto) Baso # (Auto) Add Manual Diff Total Counted Seg Neutrophils % Seg Neuts % (Manual) Band Neutrophils % Lymphocytes % (Manual) Reactive Lymphs % (Man) Monocytes % (Manual) Eosinophils % (Manual) Basophils % (Manual) Metamyelocytes % Myelocytes % Promyelocytes % Blast Cells % Nucleated RBC % Seg Neutrophils # Seg Neutrophils # Man Band Neutrophils # Lymphocytes # (Manual) Abs React Lymphs (Man) Monocytes # (Manual) Eosinophils # (Manual) Basophils # (Manual) Metamyelocytes # Myelocytes # Promyelocytes # Blast Cells # WBC Morphology Hypersegmented Neuts Hyposegmented Neuts Hypogranular Neuts Hypersegmented Polys Smudge Cells Toxic Granulation Toxic Vacuolation Dohle Bodies Pelger-Huet Anomaly Cathryn Rods Platelet Estimate Clumped Platelets Plt Clumps, EDTA Large Platelets Giant Platelets Platelet Satelliting Plt Morphology Comment RBC Morphology Dimorphic RBCs Polychromasia Hypochromasia Poikilocytosis Basophilic Stippling Anisocytosis Microcytosis Macrocytosis Spherocytes Pappenheimer Bodies Sickle Cells Target Cells Tear Drop Cells Ovalocytes Stomatocytes Helmet Cells [place] Bodies [place] Rings Flakito Cells Bite Cells Crenated Cell Elliptocytes Acanthocytes (Spur) Rouleaux Hemoglobin C Crystals Schistocytes Malaria parasites Derek Bodies Hem Pathologist Commnt Sodium Potassium Chloride Carbon Dioxide Anion Gap BUN Creatinine Estimated GFR BUN/Creatinine Ratio Glucose Calcium Total Bilirubin AST ALT Alkaline Phosphatase Total Protein Albumin Albumin/Globulin Ratio Urine RBC (Auto) < 1.0 U Epithel Cells (Auto) 1.0 Salicylates Urine Opiates Screen Urine Methadone Screen Acetaminophen 5.0 L Ur Barbiturates Screen Ur Phencyclidine Scrn Ur Amphetamines Screen Urine Cocaine Screen U Marijuana (THC) Screen Plasma/Serum Alcohol 0.15 H 06/14/22 Unknown WBC RBC Hgb Hct MCV MCH MCHC RDW Plt Count Lymph % (Auto) [place] % (Auto) Eos % (Auto) Baso % (Auto) Lymph # (Auto) [place] # (Auto) Eos # (Auto) Baso # (Auto) Add Manual Diff Total Counted Seg Neutrophils % Seg Neuts % (Manual) Band Neutrophils % Lymphocytes % (Manual) Reactive Lymphs % (Man) Monocytes % (Manual) Eosinophils % (Manual) Basophils % (Manual) Metamyelocytes % Myelocytes % Promyelocytes % Blast Cells % Nucleated RBC % Seg Neutrophils # Seg Neutrophils # Man Band Neutrophils # Lymphocytes # (Manual) Abs React Lymphs (Man) Monocytes # (Manual) Eosinophils # (Manual) Basophils # (Manual) Metamyelocytes # Myelocytes # Promyelocytes # Blast Cells # WBC Morphology Hypersegmented Neuts Hyposegmented Neuts Hypogranular Neuts Hypersegmented Polys Smudge Cells Toxic Granulation Toxic Vacuolation Dohle Bodies Pelger-Huet Anomaly Cathryn Rods Platelet Estimate Clumped Platelets Plt Clumps, EDTA Large Platelets Giant Platelets Platelet Satelliting Plt Morphology Comment RBC Morphology Dimorphic RBCs Polychromasia Hypochromasia Poikilocytosis Basophilic Stippling Anisocytosis Microcytosis Macrocytosis Spherocytes Pappenheimer Bodies Sickle Cells Target Cells Tear Drop Cells Ovalocytes Stomatocytes Helmet Cells [place] Bodies [place] Rings Flakito Cells Bite Cells Crenated Cell Elliptocytes Acanthocytes (Spur) Rouleaux Hemoglobin C Crystals Schistocytes Malaria parasites Derek Bodies Hem Pathologist Commnt Sodium Potassium Chloride Carbon Dioxide Anion Gap BUN Creatinine Estimated GFR BUN/Creatinine Ratio Glucose Calcium Total Bilirubin AST ALT Alkaline Phosphatase Total Protein Albumin Albumin/Globulin Ratio Urine RBC (Auto) U Epithel Cells (Auto) Salicylates Urine Opiates Screen Negative Urine Methadone Screen Negative Acetaminophen Ur Barbiturates Screen Negative Ur Phencyclidine Scrn Negative Ur Amphetamines Screen Negative Urine Cocaine Screen Negative U Marijuana (THC) Screen Negative Plasma/Serum Alcohol - Differential Diagnosis Alcoholism Critical care attestation.: If time is entered above; I have spent that time in minutes in the direct care of this critically ill patient, excluding procedure time. ED Disposition Clinical Impression: Alcoholism Disposition: 30 STILL A PATIENT Is pt being admited?: No Does the pt Need Aspirin: No Condition: Stable Time of Disposition: 05:37 (Awaiting luis e)
[2022-06-14 04:37] LABS: Hematocrit 46.2 % (35.5-45.6); Hemoglobin 15.3 gm/dl (11.8-15.2); Mean Corpuscular HGB Conc 33 % (32-34); Mean Corpuscular Volume 96 fl (84-94); Platelet Count 279 K/mm3 (140-440); Red Cell Distribution Width 14.5 % (13.2-15.2)
[2022-06-14 04:43] LABS: Amphetamine Screen,Urine Negative; Cannabinoid Screen,Urine Negative; Cocaine Screen,Urine Negative; Methadone Screen,Urine Negative; Opiate Screen,Urine Negative
[2022-06-14 04:47] LABS: Lymphocytes % (Auto) 33.8 % (13.4-35.0); Mean Platelet Volume 6.3 fl (6-12)
[2022-06-14 04:48] LABS: Basophils % (Auto) 0.4 % (0.0-1.8); Eosinophils % (Auto) 0.6 % (0.0-4.3); Lymphocytes # (Auto) 2.6 K/mm3 (1.2-5.4); Monocytes # (Auto) 0.8 K/mm3 (0.0-0.8); Monocytes % (Auto) 10.2 % (0.0-7.3)
[2022-06-14 04:49] LABS: Alanine Aminotransferase 28 units/L (7-56); Albumin 4.4 g/dL (3.9-5); BUN/Creatinine Ratio 11; Blood Urea Nitrogen 9 mg/dL (9-20); Calcium 8.9 mg/dL (8.4-10.2); Hemolysis Index 13
[2022-06-14 05:30] LABS: Benzodiazepines Screen,Urine Positive
[2022-06-14 05:33] LABS: Mucus,Urine 2+ /HPF; RBC,Urine < 1.0 /HPF (0.0-6.0)
[2022-06-14] MEDS ORDERED: LORazepam 2 MG/ML VIAL IV PRN ×3 (06:03)
[2022-06-14 06:15] LABS: Bilirubin,Urine Negative (Negative); Color,Urine Yellow (Yellow)
[2022-06-14 06:16] LABS: Blood,Urine Negative (Negative); Urobilinogen,Urine < 2.0 mg/dL (<2.0)
--- NOTE | 2022-06-14 12:53 | Consultation ---
History of Present Illness - Reason for Consult Consult date: 06/14/22 Reason for consult: mental health evaluation - History of Present Psychiatric Illness ED Note: Patient is a 47-year-old male presenting with chief complaint of alcoholism. Patient states he came to the emergency department seeking detox from alcohol. Patient has a history of alcoholism and states he normally consumes 1.75 L of liquor daily and last consumed tonight. Patient states he was recently released from alcohol detox The patient was seen today. He is calm, cooperative, alert and oriented x4. The Patient reports ongoing issues with alcohol for the past 24 years. He reports consuming 1.75ml ( a handle) at least 3 times per week. He reports stressor such as his divorce and custody james. The patient reports been to multiple psychiatric inpatient detoxification and rehab. No withdrawal symptom noted. He denies any current suicidal/homicidal and denies hallucinations. PAST PSYCHIATRIC HISTORY: Diagnoses: Alcohol use disorder Suicide attempts or Self-harm behavior: Yes Prior psychiatric hospitalizations: Yes Substance Abuse history: Denies Previous psychiatric medications tried:unknown Outpatient treatment: Denies PAST MEDICAL HISTORY: None reported Family Psychiatric History: None reported or documented SOCIAL HISTORY Marital Status: Living Arrangements: Homeless Employment Status: Unemployed Access to guns/weapons: Denies Education:College History of Abuse: Denies Legal History: Denies REVIEW OF SYSTEMS Constitutional: Negative for weight loss ENT: Negative for stridor Respiratory: Negative for cough or hemoptysis All other systems reviewed and are negative MENTAL STATUS EXAMINATION General Appearance and Behavior: Age appropriate, good hygiene, wearing appropriate clothes, calm, cooperative Cooperation: cooperative Psychomotor Behavior: Normal Mood: calm Affect and affective range: congruent Thought Process: Goal directed Thought Content:Reality oriented Speech: Normal tone and pace Intellectual Functioning: Average Suicidal Ideation: Denies Homicidal Ideation: Denies Hallucination: Denies Impulse Control:Limited Insight and Judgment: Good insight and judgment Memory: Intact Attention:Attentive Orientation: Alert and oriented Diagnoses: (1) Alcohol used Disorder, severe Treatment Plan: Adjust lights to alter the environment MEDICAL: Per primary team DELIRIUM PRECAUTIONS: Please re-orient patient frequently, keep lights on during the day, and minimize benzodiazepines and opiates as these medications could worsen patient's confusion. SPECIAL EDUCATION TEACHERS: Per medical team DISPOSITION: Do not recommend acute inpatient psychiatric hospitalization at this time. Planner Intern will provide patient with psychiatric outpatient resources. FOLLOW-UP: Will sign off. Thank you for the consult. Please contact with any questions and/or concerns. Case staffed with Dr. Guzman Medications and Allergies Medications and Allergies Allergies Allergy/AdvReac Type Severity Reaction Status Date / Time No Known Allergies Allergy Verified 05/27/22 17:14 Home Medications Medication Instructions Recorded Confirmed Last Taken Type Multivitamin with Folic Acid [[facility] 400 mcg PO QDAY #30 tablet 04/08/22 Unknown Rx One Daily Essential Tablet] chlordiazePOXIDE [Librium] 25 mg PO Q6H PRN #25 capsule 04/08/22 Unknown Rx Active Meds: Active Medications Lorazepam (Lorazepam 2 Mg/Ml Vial) 2 mg IV Q1HR PRN PRN Reason: CIWA-Ar 8-15 Lorazepam (Lorazepam 2 Mg/Ml Vial) 4 mg IV Q1HR PRN PRN Reason: CIWA-Ar 16-25 Lorazepam (Lorazepam 2 Mg/Ml Vial) 4 mg IV Q15MIN PRN PRN Reason: CIWA-Ar >25 Mental Status Exam - Vital signs Last Vital Signs Temp 98.1 F 06/13/22 22:00 Pulse 87 06/13/22 22:00 Resp 16 06/13/22 22:00 BP 157/87 06/13/22 22:00 Pulse Ox 97 06/13/22 22:00 Results Result Diagrams: 06/14/22 04:12 06/14/22 04:12 Abnormal lab results 06/14/22 06/14/22 06/14/22 Range/Units 04:12 04:12 04:12 Hgb 15.3 H (11.8-15.2) gm/dl Hct 46.2 H (35.5-45.6) % MCV 96 H (84-94) [place] % (Auto) 10.2 H (0.0-7.3) % Glucose 132 H (75-100) mg/dL Salicylates < 0.3 L (2.8-20.0) mg/dL Acetaminophen (10.0-30.0) ug/mL Plasma/Serum Alcohol (0-0.07) % 06/14/22 06/14/22 Range/Units 04:12 04:12 Hgb (11.8-15.2) gm/dl Hct (35.5-45.6) % MCV (84-94) [place] % (Auto) (0.0-7.3) % Glucose (75-100) mg/dL Salicylates (2.8-20.0) mg/dL Acetaminophen 5.0 L (10.0-30.0) ug/mL Plasma/Serum Alcohol 0.15 H (0-0.07) % All other labs normal.
--- NOTE | 2022-06-14 13:15 | Emergency Department Report ---
Blank Doc - Documentation Documentation: 47-year-old male with a history of alcoholism presented to the ER seeking detox. Patient has been given resources, and will be discharged home. Patient has been cleared by psychiatry.
== END 2022-06-14 14:32 | disposition home or self-care (01) ==
LOC: ED 21:56
DX: F10.20 Alcohol dependence, uncomplicated (principal); E11.9 Type 2 diabetes mellitus without complications; F17.200 Nicotine dependence, unspecified, uncomplicated
CPT/HCPCS: 36415; 80053; 80307; 80320; 81001; 85025; 99283; G0480